=== PATIENT | female | born 1965 | race Caucasian/White ===

== ENCOUNTER 2025-04-04 13:30 | Day surgery (SDC) | payer BC ==
[2025-04-03 18:12] VITALS: BMI 25.9
[~2025-04-04 13:30] MED LIST: ACETAMINOPHEN 500 MG TABLET (FP) PO PRN
[2025-04-04 13:51] VITALS: RESP 18
[2025-04-04] MEDS: IOHEXOL 180 MG/1 ML ML IJ ONE ×3 (14:25)
[2025-04-04] MEDS: LIDOCAINE HCL 1% PRESERVATIVE FREE - 30ML VIAL IJ ONE ×3 (14:25)
[2025-04-04] MEDS: DEXAMETHASONE SOD PHOSPHATE 10 MG/1 ML VIAL IVPUSH ONE ×2 (14:25)
[2025-04-04 14:44] VITALS: BP 135/78; PULSE 61; TEMP 98.6
== END 2025-04-04 14:55 | disposition home or self-care (01) ==
LOC: JASU-SURG 13:30
PROVIDERS: ATTEND Pain Medicine Pain Medicine
PROC: 3E0R3BZ Introduction of Anesthetic Agent into Spinal Canal, Percutaneous Approach (ICD-10-PCS; 2025-04-04)
PROC: 3E0R33Z Introduction of Anti-inflammatory into Spinal Canal, Percutaneous Approach (ICD-10-PCS; principal; 2025-04-04 14:30)
DX: M54.12 Radiculopathy, cervical region (principal)
CPT/HCPCS: 76000-TC-FY; J1100